=== PATIENT | male | born 1960 | race Caucasian/White ===

== ENCOUNTER → 2017-03-01 | Outpatient (CLI) | payer OTHER ==
[2017-03-01 14:18] LABS: MEAN CORPUSCULAR HEMOGLOBIN 32.5 pg (27.0-33.0); MEAN CORPUSCULAR HGB CONC 32.6 g/dl (32.0-36.5); MEAN CORPUSCULAR VOLUME 99.5 fl (80.0-96.0); RED CELL DISTRIBUTION WIDTH 12.9 % (11.5-14.5)
[2017-03-01 14:21] LABS: ALBUMIN 3.9 GM/DL (3.2-5.2); ALBUMIN/GLOBULIN RATIO 1.39 (1.00-1.93); ALKALINE PHOSPHATASE 45 U/L (45-117); ALT/SGPT 22 U/L (12-78); ANION GAP 3 MEQ/L (8-16); AST/SGOT 11 U/L (15-37); BILIRUBIN,TOTAL 0.4 MG/DL (0.2-1.0); BLOOD UREA NITROGEN 14 MG/DL (7-18); CARBON DIOXIDE LEVEL 29 MEQ/L (21-32); CHLORIDE LEVEL 109 MEQ/L (98-107); CHOLESTEROL LEVEL 145 MG/DL (<200); CREATININE FOR GFR 0.85 MG/DL (0.70-1.30); GLOMERULAR FILTRATION RATE > 60.0 (>56); GLUCOSE, FASTING 90 MG/DL (70-105); POTASSIUM SERUM 4.6 MEQ/L (3.5-5.1); SODIUM LEVEL 141 MEQ/L (136-145); TOTAL PROTEIN 6.7 GM/DL (6.4-8.2); TRIGLYCERIDES LEVEL 47 MG/DL (<150)
== END ==
LOC: M WUC 09:28
PROVIDERS: ATTEND Nurse Practitioner Adult Health
DX: Z00.01 Encounter for general adult medical examination with abnormal findings (principal)

== ENCOUNTER → 2017-03-25 | Outpatient (CLI) | payer OTHER ==
--- NOTE | 2017-03-25 17:06 | REP ---
CT IACS WITHOUT CONTRAST: HISTORY: Right otorrhea. The right internal auditory canal cochlea, vestibule and semicircular canals are normal in appearance. Soft-tissue density is present in the right middle ear cavity. The ossicles are not seen. There is blunting of the scutum. There is dehiscence over the tegmen. There is almost complete opacification of the right mastoid air cells. There is retraction of the right tympanic membrane. The left internal auditory canal, cochlea, vestibule and semicircular canals are normal in appearance. The ossicles are normal in position , however , slightly decreased in size. Soft tissue density is present in the left middle ear cavity. There is complete opacification of the left middle ear cavity. There is retraction of the left tympanic membrane. There is blunting of the scutum. There is dehiscence of the tegmen. There is almost complete opacification of the left mastoid air cells. The visualized sinuses are clear. The nasopharynx is normal in appearance. IMPRESSION: The above findings are consistent with bilateral cholesteatoma. Signed by Afshin Manley MD 03/29/2017 08:34 A
== END ==
LOC: M RAD 15:44
PROVIDERS: ATTEND Otolaryngology
DX: H66.3X1 Other chronic suppurative otitis media, right ear (principal)

== ENCOUNTER 2017-09-16 11:14 | Emergency (ER) | payer OTHER ==
[~2017-09-16] VITALS: Ht 177.8 cm; Wt 70.0 kg
[2017-09-16] MEDS ORDERED: NAPR500T PO (12:26)
[2017-09-16 12:35] VITALS: BP 137/84
== END 2017-09-16 12:39 | disposition home or self-care (01) ==
LOC: M ED 11:14
DX: M54.5 Low back pain (principal); M62.830 Muscle spasm of back; F10.11 Alcohol abuse, in remission; F19.11 Other psychoactive substance abuse, in remission; Z88.8 Allergy status to other drugs, medicaments and biological substances

== ENCOUNTER 2017-12-25 20:53 | Emergency (ER) | payer OTHER ==
[2017-12-25 22:27] LABS: BASO # 0.1 10^3/uL (0.0-0.2); EOS # 0.3 10^3/uL (0.0-0.50); EOS % 3.6 % (0.0-3.0); HEMATOCRIT 38.4 % (42.0-52.0); HEMOGLOBIN 13.2 g/dl (14.0-18.0); IMMATURE GRANULOCYTE % 0.2 % (0-3.0); LYMPH # 2.8 10^3/uL (1.5-4.5); LYMPH % 31.5 % (24.0-44.0); MEAN CORPUSCULAR HGB CONC 34.4 g/dl (32.0-36.5); MEAN CORPUSCULAR VOLUME 93.2 fl (80.0-96.0); MONO # 0.8 10^3/uL (0.0-0.8); MONO % 9.2 % (0.0-5.0); NEUTROPHILS # 4.8 10^3/uL (1.8-7.7); NEUTROPHILS % 54.5 % (36.0-66.0); PLATELET COUNT, AUTOMATED 183 10^3/uL (150-450); RED BLOOD COUNT 4.12 10^6/uL (4.30-6.10); RED CELL DISTRIBUTION WIDTH 12.7 % (11.5-14.5); WHITE BLOOD COUNT 8.8 10^3/uL (4.0-10.0)
[2017-12-25 22:38] LABS: CARBOXYHEMOGLOBIN 6.7 % (0.0-1.5)
[2017-12-25 22:46] LABS: ANION GAP 5 MEQ/L (8-16); BLOOD UREA NITROGEN 13 MG/DL (7-18); CALCIUM LEVEL 8.8 MG/DL (8.5-10.1); CARBON DIOXIDE LEVEL 26 MEQ/L (21-32); CHLORIDE LEVEL 111 MEQ/L (98-107); CREATININE FOR GFR 0.86 MG/DL (0.70-1.30); GLOMERULAR FILTRATION RATE > 60.0 (>56); GLUCOSE, FASTING 87 MG/DL (70-100); POTASSIUM SERUM 4.5 MEQ/L (3.5-5.1); SODIUM LEVEL 142 MEQ/L (136-145)
== END 2017-12-26 00:03 | disposition home or self-care (01) ==
LOC: M ED 12-26 00:03
DX: T58.91XA Toxic effect of carbon monoxide from unspecified source, accidental (unintentional), initial encounter (principal); R59.0 Localized enlarged lymph nodes; J44.9 Chronic obstructive pulmonary disease, unspecified; Z79.899 Other long term (current) drug therapy; Z79.51 Long term (current) use of inhaled steroids; Z88.8 Allergy status to other drugs, medicaments and biological substances; F17.210 Nicotine dependence, cigarettes, uncomplicated
CPT/HCPCS: 71046

== ENCOUNTER 2018-05-16 10:25 | Emergency (ER) | payer OTHER ==
[2018-05-16 11:09] LABS: BASO # 0.1 10^3/uL (0.0-0.2); BASO % 0.9 % (0.0-1.0); EOS # 0.3 10^3/uL (0.0-0.50); EOS % 3.9 % (0.0-3.0); HEMOGLOBIN 13.9 g/dl (13.5-17.5); IMMATURE GRANULOCYTE % 0.1 % (0-3.0); LYMPH # 2.8 10^3/uL (1.5-4.5); LYMPH % 31.4 % (24.0-44.0); MEAN CORPUSCULAR HEMOGLOBIN 31.7 pg (27.0-33.0); MEAN CORPUSCULAR HGB CONC 33.9 g/dl (32.0-36.5); MEAN CORPUSCULAR VOLUME 93.4 fl (80.0-96.0); MONO # 0.6 10^3/uL (0.0-0.8); MONO % 6.7 % (0.0-5.0); PLATELET COUNT, AUTOMATED 185 10^3/uL (150-450); RED BLOOD COUNT 4.39 10^6/uL (4.30-6.10); RED CELL DISTRIBUTION WIDTH 12.5 % (11.5-14.5); WHITE BLOOD COUNT 8.8 10^3/uL (4.0-10.0)
[2018-05-16 11:45] LABS: ALBUMIN 3.8 GM/DL (3.2-5.2); ALBUMIN/GLOBULIN RATIO 1.09 (1.00-1.93); ALKALINE PHOSPHATASE 53 U/L (45-117); ALT/SGPT 30 U/L (12-78); ANION GAP 5 MEQ/L (8-16); AST/SGOT 17 U/L (7-37); BILIRUBIN,DIRECT < 0.1 MG/DL (0.0-0.2); BILIRUBIN,TOTAL 0.2 MG/DL (0.2-1.0); BLOOD UREA NITROGEN 9 MG/DL (7-18); CALCIUM LEVEL 8.7 MG/DL (8.5-10.1); CARBON DIOXIDE LEVEL 29 MEQ/L (21-32); CHLORIDE LEVEL 109 MEQ/L (98-107); GLOMERULAR FILTRATION RATE > 60.0 (>56); GLUCOSE, FASTING 96 MG/DL (70-100); POTASSIUM SERUM 4.1 MEQ/L (3.5-5.1); SODIUM LEVEL 143 MEQ/L (136-145); TOTAL PROTEIN 7.3 GM/DL (6.4-8.2)
[2018-05-16] MEDS: PROPARACAINE 0.5% OPHTH SOL 15ML OD (12:45)
== END 2018-05-16 13:15 | disposition home or self-care (01) ==
LOC: M ED 10:25
DX: H53.451 Other localized visual field defect, right eye (principal); J44.9 Chronic obstructive pulmonary disease, unspecified; F17.200 Nicotine dependence, unspecified, uncomplicated; Z88.6 Allergy status to analgesic agent
CPT/HCPCS: 70450

== ENCOUNTER 2018-10-02 20:15 | Emergency (ER) | payer OTHER ==
[2018-10-02 21:08] LABS: BASO # 0.1 10^3/uL (0.0-0.2); BASO % 1.2 % (0.0-1.0); EOS # 0.3 10^3/uL (0.0-0.50); EOS % 3.7 % (0.0-3.0); HEMATOCRIT 38.6 % (42.0-52.0); IMMATURE GRANULOCYTE % 0.3 % (0-3.0); LYMPH # 2.4 10^3/uL (1.5-4.5); LYMPH % 35.8 % (24.0-44.0); MEAN CORPUSCULAR HEMOGLOBIN 31.3 pg (27.0-33.0); MEAN CORPUSCULAR HGB CONC 33.7 g/dl (32.0-36.5); MEAN CORPUSCULAR VOLUME 92.8 fl (80.0-96.0); MONO # 0.6 10^3/uL (0.0-0.8); MONO % 8.8 % (0.0-5.0); NEUTROPHILS # 3.4 10^3/uL (1.8-7.7); NEUTROPHILS % 50.2 % (36.0-66.0); PLATELET COUNT, AUTOMATED 188 10^3/uL (150-450); RED BLOOD COUNT 4.16 10^6/uL (4.30-6.10); RED CELL DISTRIBUTION WIDTH 12.5 % (11.5-14.5); WHITE BLOOD COUNT 6.8 10^3/uL (4.0-10.0)
[2018-10-02] MEDS: hydrALAZINE INJ 20 MG/ML VIAL IV (21:16)
[2018-10-02 21:19] LABS: PARTIAL THROMBOPLASTIN TIME 27.9 SECONDS (25.4-37.6); PROTHROMBIN TIME 13.3 SECONDS (12.1-14.4)
[2018-10-02 21:40] LABS: ALBUMIN 3.5 GM/DL (3.2-5.2); ALBUMIN/GLOBULIN RATIO 1.25 (1.00-1.93); ALKALINE PHOSPHATASE 45 U/L (45-117); ALT/SGPT 25 U/L (12-78); ANION GAP 6 MEQ/L (8-16); AST/SGOT 16 U/L (7-37); BILIRUBIN,DIRECT < 0.1 MG/DL (0.0-0.2); BILIRUBIN,TOTAL 0.2 MG/DL (0.2-1.0); BLOOD UREA NITROGEN 11 MG/DL (7-18); CALCIUM LEVEL 8.7 MG/DL (8.5-10.1); CARBON DIOXIDE LEVEL 29 MEQ/L (21-32); CHLORIDE LEVEL 110 MEQ/L (98-107); CK-MB VALUE MASS < 1.0 NG/ML (<3.6); CPK CREATINE PHOSPHOKINASE 105 U/L (39-308); CREATININE FOR GFR 0.87 MG/DL (0.70-1.30); FREE T4 0.97 NG/DL (0.76-1.46); GLOMERULAR FILTRATION RATE > 60.0 (>56); GLUCOSE, FASTING 99 MG/DL (70-100); MB/CK RELATIVE INDEX 0.95 (< OR =4); POTASSIUM SERUM 4.1 MEQ/L (3.5-5.1); SODIUM LEVEL 145 MEQ/L (136-145); TOTAL PROTEIN 6.3 GM/DL (6.4-8.2); TROPONIN I < 0.02 NG/ML (< 0.10)
== END 2018-10-02 22:30 | disposition home or self-care (01) ==
LOC: M ED 20:15
DX: I16.0 Hypertensive urgency (principal); I10 Essential (primary) hypertension; J44.9 Chronic obstructive pulmonary disease, unspecified; Z88.8 Allergy status to other drugs, medicaments and biological substances; F17.210 Nicotine dependence, cigarettes, uncomplicated
CPT/HCPCS: 70450

== ENCOUNTER 2018-10-04 16:51 | Emergency (ER) | payer OTHER ==
[2018-10-04 17:27] LABS: BASO # 0.1 10^3/uL (0.0-0.2); EOS # 0.3 10^3/uL (0.0-0.50); EOS % 3.9 % (0.0-3.0); HEMATOCRIT 38.6 % (42.0-52.0); HEMOGLOBIN 13.2 g/dl (13.5-17.5); IMMATURE GRANULOCYTE % 0.1 % (0-3.0); LYMPH # 2.7 10^3/uL (1.5-4.5); LYMPH % 34.6 % (24.0-44.0); MEAN CORPUSCULAR HEMOGLOBIN 31.7 pg (27.0-33.0); MEAN CORPUSCULAR HGB CONC 34.2 g/dl (32.0-36.5); MEAN CORPUSCULAR VOLUME 92.8 fl (80.0-96.0); MONO # 0.6 10^3/uL (0.0-0.8); MONO % 7.5 % (0.0-5.0); NEUTROPHILS # 4.1 10^3/uL (1.8-7.7); NEUTROPHILS % 52.9 % (36.0-66.0); PLATELET COUNT, AUTOMATED 193 10^3/uL (150-450); RED BLOOD COUNT 4.16 10^6/uL (4.30-6.10); RED CELL DISTRIBUTION WIDTH 12.6 % (11.5-14.5); WHITE BLOOD COUNT 7.7 10^3/uL (4.0-10.0)
[2018-10-04 17:49] LABS: INR 1.02; PROTHROMBIN TIME 13.5 SECONDS (12.1-14.4)
[2018-10-04 17:50] LABS: PARTIAL THROMBOPLASTIN TIME 27.2 SECONDS (25.4-37.6)
[2018-10-04 17:51] LABS: ALT/SGPT 27 U/L (12-78); ANION GAP 8 MEQ/L (8-16); AST/SGOT 16 U/L (7-37); BLOOD UREA NITROGEN 13 MG/DL (7-18); CALCIUM LEVEL 8.6 MG/DL (8.5-10.1); CARBON DIOXIDE LEVEL 24 MEQ/L (21-32); CHLORIDE LEVEL 110 MEQ/L (98-107); CREATININE FOR GFR 0.86 MG/DL (0.70-1.30); GLOMERULAR FILTRATION RATE > 60.0 (>56); GLUCOSE, FASTING 95 MG/DL (70-100); PHOSPHORUS LEVEL 2.8 MG/DL (2.5-4.9); POTASSIUM SERUM 3.8 MEQ/L (3.5-5.1); SODIUM LEVEL 142 MEQ/L (136-145)
[2018-10-04 17:52] LABS: ALBUMIN 3.7 GM/DL (3.2-5.2); ALBUMIN/GLOBULIN RATIO 1.28 (1.00-1.93); ALKALINE PHOSPHATASE 46 U/L (45-117); BILIRUBIN,DIRECT < 0.1 MG/DL (0.0-0.2); BILIRUBIN,TOTAL 0.2 MG/DL (0.2-1.0); CK-MB VALUE MASS < 1.0 NG/ML (<3.6); CPK CREATINE PHOSPHOKINASE 106 U/L (39-308); FREE T4 0.99 NG/DL (0.76-1.46); LIPASE 161 U/L (73-393); MAGNESIUM LEVEL 2.1 MG/DL (1.8-2.4); MB/CK RELATIVE INDEX 0.94 (< OR =4); TOTAL PROTEIN 6.6 GM/DL (6.4-8.2); TROPONIN I < 0.02 NG/ML (< 0.10)
[2018-10-04] MEDS ORDERED: ISOVUE-370 76% 100ML VIAL (Q9967) As Ordered (18:25)
[2018-10-04 22:21] LABS: CK-MB VALUE MASS < 1.0 NG/ML (<3.6); CPK CREATINE PHOSPHOKINASE 109 U/L (39-308); MB/CK RELATIVE INDEX 0.92 (< OR =4); TROPONIN I < 0.02 NG/ML (< 0.10)
== END 2018-10-04 22:36 | disposition home or self-care (01) ==
LOC: M ED 16:51
DX: R07.89 Other chest pain (principal); R11.0 Nausea; R06.02 Shortness of breath; I10 Essential (primary) hypertension; J43.9 Emphysema, unspecified; F19.10 Other psychoactive substance abuse, uncomplicated; F17.200 Nicotine dependence, unspecified, uncomplicated; Z88.6 Allergy status to analgesic agent; Z79.899 Other long term (current) drug therapy
CPT/HCPCS: Q9967

== ENCOUNTER 2019-01-17 09:01 | Emergency (ER) | payer OTHER ==
[~2019-01-17] VITALS: Ht 177.8 cm; Wt 73.6 kg
[~2019-01-17 09:01] MED LIST: AMLO10TA PO; ARNU1INH3; BREO1INH3; FLUARIX; NAPR-50 PO
[2019-01-17] MEDS ORDERED: LIDOCAINE 5% (LIDODERM) PATCH TD ONE (10:30)
[2019-01-17] MEDS ORDERED: LIDO5DIS41 TD (10:30)
[2019-01-17 10:40] VITALS: BP 143/68
[2019-01-17] MEDS ORDERED: **NOTE PATIENT COMMENT** MISC XX SCH (21:00)
== END 2019-01-17 10:41 | disposition home or self-care (01) ==
LOC: M ED 09:01
DX: M25.511 Pain in right shoulder (principal); I10 Essential (primary) hypertension; J44.9 Chronic obstructive pulmonary disease, unspecified; E78.5 Hyperlipidemia, unspecified; F10.11 Alcohol abuse, in remission; F19.11 Other psychoactive substance abuse, in remission; F17.210 Nicotine dependence, cigarettes, uncomplicated; Z88.8 Allergy status to other drugs, medicaments and biological substances

== ENCOUNTER → 2019-01-22 | Outpatient (REF) | payer OTHER ==
[~2019-01-22] MED LIST changes: +LIDO5DIS41 TD
[2019-01-22 11:54] LABS: HEMATOCRIT 39.9 % (42.0-52.0); HEMOGLOBIN 13.4 g/dl (13.5-17.5); MEAN CORPUSCULAR HEMOGLOBIN 30.9 pg (27.0-33.0); MEAN CORPUSCULAR HGB CONC 33.6 g/dl (32.0-36.5); MEAN CORPUSCULAR VOLUME 91.9 fl (80.0-96.0); PLATELET COUNT, AUTOMATED 204 10^3/uL (150-450); RED BLOOD COUNT 4.34 10^6/uL (4.30-6.10); WHITE BLOOD COUNT 7.6 10^3/uL (4.0-10.0)
[2019-01-22 12:11] LABS: BLOOD UREA NITROGEN 11 MG/DL (7-18); CREATININE FOR GFR 0.72 MG/DL (0.70-1.30); GLOMERULAR FILTRATION RATE > 60.0 (>56); GLUCOSE, FASTING 86 MG/DL (70-100)
[2019-01-22 12:12] LABS: ALT/SGPT 31 U/L (12-78); BILIRUBIN,TOTAL 0.2 MG/DL (0.2-1.0); CALCIUM LEVEL 8.7 MG/DL (8.5-10.1); CARBON DIOXIDE LEVEL 28 MEQ/L (21-32); CHLORIDE LEVEL 110 MEQ/L (98-107); POTASSIUM SERUM 4.5 MEQ/L (3.5-5.1); SODIUM LEVEL 142 MEQ/L (136-145); THYROID STIMULATING HORMONE 0.894 uIU/ML (0.358-3.740); TOTAL PROTEIN 6.8 GM/DL (6.4-8.2)
== END ==
LOC: M SFHCPLAZ 08:49
PROVIDERS: ATTEND Nurse Practitioner Adult Health
DX: Z00.00 Encounter for general adult medical examination without abnormal findings (principal)

== ENCOUNTER → 2020-11-26 | Outpatient (CLI) | payer OTHER ==
[~2020-11-26] MED LIST changes: -NAPR-50 PO; +NAPR-837 PO
[2020-11-26 15:20] LABS: HEMATOCRIT 40.9 % (42.0-52.0); HEMOGLOBIN 13.6 g/dl (13.5-17.5); MEAN CORPUSCULAR HEMOGLOBIN 31.1 pg (27.0-33.0); MEAN CORPUSCULAR HGB CONC 33.3 g/dl (32.0-36.5); MEAN CORPUSCULAR VOLUME 93.4 fl (80.0-96.0); PLATELET COUNT, AUTOMATED 207 10^3/uL (150-450); RED BLOOD COUNT 4.38 10^6/uL (4.30-6.10); WHITE BLOOD COUNT 9.4 10^3/uL (4.0-10.0)
[2020-11-26 15:59] LABS: ALBUMIN 4.2 GM/DL (3.2-5.2); ALT/SGPT 26 U/L (12-78); BILIRUBIN,TOTAL 0.2 MG/DL (0.2-1.0); BLOOD UREA NITROGEN 13 MG/DL (7-18); CALCIUM LEVEL 9.5 MG/DL (8.8-10.2); CARBON DIOXIDE LEVEL 29 MEQ/L (21-32); CHLORIDE LEVEL 107 MEQ/L (98-107); CREATININE FOR GFR 0.89 MG/DL (0.70-1.30); GLOMERULAR FILTRATION RATE > 60.0 (>49); GLUCOSE, FASTING 86 MG/DL (70-100); POTASSIUM SERUM 4.2 MEQ/L (3.5-5.1); SODIUM LEVEL 141 MEQ/L (136-145); TOTAL PROTEIN 7.1 GM/DL (6.4-8.2)
--- NOTE | 2020-11-27 04:29 | REPPI ---
INDICATION: SOB COMPARISON: 10/04/2018 TECHNIQUE: PA and lateral. FINDINGS: The mediastinum and cardiac silhouette are normal. The lung ve[place] are clear and without acute consolidation, effusion, or pneumothorax. The skeletal structures are intact and normal. IMPRESSION: No acute cardiopulmonary process. <Electronically signed by Shoaib Lee > 11/27/20 0425
== END ==
LOC: M PLAIMG 13:25
PROVIDERS: ATTEND Nurse Practitioner Adult Health
DX: R06.02 Shortness of breath (principal); I10 Essential (primary) hypertension; Z12.5 Encounter for screening for malignant neoplasm of prostate; I45.9 Conduction disorder, unspecified

== ENCOUNTER 2020-12-13 14:07 | Emergency (ER) | payer OTHER ==
[~2020-12-13] VITALS: Ht 177.8 cm; Wt 68.7 kg
[2020-12-13 14:08] VITALS: BP 157/71
--- OUTSIDE RECORDS SUMMARY | 2020-12-13 14:14 | CCD ---
Author Author [facility] Organization [facility] Address Unknown Phone Unavailable Care Team Providers Care Acute Care Occupational Therapist Name Role Phone VirginiaageStevenCat Unavailable PROBLEMS Type Condition ICD9-CM Code [id number] Code Onset Dates Condition S tatus W/U Status Risk SNOMED Code Notes Problem Tobacco abuse Z72.0 Active confirmed 954586 [id number] Problem Emphysema (subcutaneous) resulting from a procedure, initial encounter T81.82XA Active confirmed 35259175 Problem Essential tremor G25.0 Active confirmed 609 224405 Problem Benign prostatic hyperplasia with lower urinary tract symptoms N40.1 Active confirmed 886697030134369 Problem Bilateral hearing loss, unspecified hearing loss type H91.93 Active confirmed 96187756 Problem Skipped heart beats I45.9 Active confirmed 349357272 Problem Pulmonary emphysema, unspecified emphysema type J4 3.9 Active confirmed 32344455 Problem Carboxyhemoglobinemia, undetermined intent, 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 Active confirmed 559542208 Problem Essential hypertension I10 Active confirmed 60705143 Problem Carpal tunnel syndrome of right wrist G56.01 Ac tive confirmed 151126861985351 Problem Cigarette smoker F17.210 Active confirmed 65 370567 ALLERGIES Allergen (clinical drug ingredient) Drug/Non Drug Allergy do cumented on EMR Reaction Allergy Type Onset Date Status tylenol back pain started wh en he stopped tylenol with codiene and took plain tylenol Non Drug Allergy Active ENCOUNTERS from 1960 to 2020-12-01 Encounter Location Date Provider Diagnosis [facility] [place] [address] [place] [address] Oct, Cat Servage Shortness of breath R06.02 ; Skipped hea rt beats I45.9 ; Essential hypertension I10 ; Pulmonary emphysema, unspecified emphysema type J43.9 ; Essential tremor G25.0 ; Bilateral hearing loss, unspecified hearing loss type H91.93 ; Cigarette smoker F17.210 ; Benign prostatic hyperplasia with lower urinary tract symptoms N40.1 ; Screening PSA (prostate specific antigen) Z12.5 and Immunization refused Z28.21 IMMUNIZATIONS Vaccine Route Administration Date Status Pneumococcal Adult 0.5mL (Pneumovax 23) IM Intramuscular January 292016 Administered Influenza (6mo & up) Fluzone Unknown Jul 07, 2017 Adm inistered SOCIAL HISTORY Tobacco Use: Social History Observation Description Date Details (start date - stop date) Current Smoker Sex Assigned At : Social History Observation Description Sex Assigned At Unknown Education: Question Answer Notes Level of Education: High School finished 10th Audit Question Answer Notes Total Score: 0 Interpretation: Alcohol Education Language: Question Answer Notes Languages spoken: Nepalese Samaritan: Question Answer Notes Samaritan 33 None Sexual Hx: Question Answer Notes Had sex in the last 12 months (vaginal, oral, or anal)? Yes Have you ever had an STD? No Prevention Strategies discussed: Other with Women only Use protection? No Drug and Alcohol Question Answer Notes Total Score: 0 Interpretation: No problems reported Alcohol Screening: Question Answer Notes Did you have a drink containing alcohol in the past year? No Points 0 Interpretation Negative Tobacco Use: Question Answer Notes Are you a: current smoker Smoking Cessation Information Given 11/26/2020 Patient counseled on the dangers of tobacco use and urged to quit: 11/26/2020 How many cigarettes a day do you smoke? 5 or less Are you interested in quitting? Not ready to quit REASON FOR REFERRAL No Information VITAL SIGNS Weight 150.0 lbs Oct, Height 60 in Oct, BMI 29.29 kg/m2 Oct, Heart Rate 90 /min Oct, Respiratory Rate 18 /min Oct, Temperature 99.1 degrees Fahrenheit Oct, Oximetry 100% Oct, Blood pressure systolic 136 mm Hg Oct, Blood pressure diastolic 70 mm Hg Oct, MEDICATIONS Medication SIG (Take, Route, Frequency, Duration) Notes Start Da te End Date Status Flomax 0.4 MG 1 capsule Orally Once a day for 30 day(s) Jul, Not-Taking Albuterol Sulfate HFA 108 (90 Base) MCG/ACT 2 puff as needed Inhalation every 4 hrs for 30 days Oct, Active PredniSONE 10 MG 1 tablet Orally as directed 3 tabs x 3 days 2 tabs x 3 days 1 tab x 3 days for 9 days Jul, Not-Taki ng Advair Diskus 250-50 MCG/DOSE 1 puff Inhalation Twice a day for 30 days Oct, Active AmLODIPine Besylate 10 MG 1 tablet Orally Once a day for 90 days Active PROCEDURES from 1960 to 2020-12-01 Procedure Date Ordered Result Body Site ELECTROCARDIOGRAM, COMPLETE EKG 2020-11-26 N/A RESULTS Component Value Reference Range CBC - Complete Blood Count Reviewed date:11/26/2020 16:20:51 Interpretation: Performing Lab:[facility] [address] [facility] [address] , ,[place] [address] WHITE BLOOD COUNT 9.4 4.0-10.0 RED BLOOD COUNT 4.38 4.30-6.10 HEMOGLOBIN 13.6 13.5-17.5 HEMATOCRIT 40.9 42.0-52.0 MEAN CORPUSCULAR VOLUME 93.4 80.0-96.0 MEAN CORPUSCULAR HEMOGLOBIN 31.1 27.0-33.0 MEAN CORPUSCULAR HGB CONC 33.3 32.0-36.5 RED CELL DISTRIBUTION WIDTH 12.2 11.5-14.5 PLATELET COUNT, AUTOMATED 207 150-450 Comprehensive Metabolic Profile (CMP) Reviewed date:11/26/2020 16:18:17 Interpretation: Performing Lab:[facility] [address] [facility] [address] , ,[place] [address] GLUCOSE, FASTING 86 70-100 BLOOD UREA NITROGEN 13 7-18 CREATININE FOR GFR 0.89 0.70-1.30 GLOMERULAR FILTRATION RATE > 60.0 >49 SODIUM LEVEL 141 136-145 POTASSIUM SERUM 4.2 3.5-5.1 CHLORIDE LEVEL 107 98-107 CARBON DIOXIDE LEVEL 29 21-32 CALCIUM LEVEL 9.5 8.8-10.2 AST/SGOT 9 7-37 ALT/SGPT 26 12-78 ALKALINE PHOSPHATASE 47 45-117 BILIRUBIN,TOTAL 0.2 0.2-1.0 TOTAL PROTEIN 7.1 6.4-8.2 ALBUMIN 4.2 3.2-5.2 ALBUMIN/GLOBULIN RATIO 1.4 PSA SCREENING Reviewed date:11/26/2020 16:20:34 Interpretation: Performing Lab:[facility], [facility] [address] [address] , ,[place] [address] PSA SCREENING 2.08 < 4.00 REASON FOR VISIT breathing issues MEDICAL (GENERAL) HISTORY Type Description Date Medical History Emphysema Medical History hypertension Medical History Tobacco abuse 1 pack per day x 45 years Medical History Substance abuse in the past Medical History 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 or-quit 10/17 Medical History decreased hearing bilateral Surgical History dental surgery - removed 02/13 Surgical History bilateral cataracts 07/2019-07/2019 Hospitalization History none Goals Section No Information Health Concerns No Information MEDICAL EQUIPMENT No Information MENTAL STATUS No Information FUNCTIONAL STATUS No Information ASSESSMENTS Encounter Date Diagnosis Assessment Notes Treatment Notes Treatm ent Clinical Notes Oct, Shortness of breath (ICD-10 - R06.02) stopped breo due to cost will obtain chest x ray Oct, Skipped heart beats (ICD-10 - I45.9) ekg obtained today right bundle branch block left fascicular block Oct, Essential hypertension (ICD-10 - I10) Per JNC 8 guidelines, goal BP < 140/90 <60, is meeting goal on current regimen. Advised heart-healthy diet, sodium restriction will continue norvasc 10 mg po q day Oct, Pulmonary emphysema, unspecified emphysema type (ICD-10 - J43.9) identified on CT last fall in the ER. refuses referral to Pulmonary Service, at that time. refused inhalers refuses follow-up CT scans or screening CT scans 08/20/20 agrees to inhaler today to address shortness of breath and wheeezing Oct, Essential tremor (ICD-10 - G25.0) patient states that he has had a tremor on and off for years. Was told that he might have Parkinson's, he was on primidone. Did not like it. refuses referral to neurology services at the current time. no tremor noted today Oct, Bilateral hearing loss, unsp ecified hearing loss type (ICD-10 - H91.93) x several years, states hearing aides work well Oct, Cigarette smoker (ICD-10 - F17.210) Has cut down his smoking, 4 cigarettes per day around meals and bedtime. Oct, Benign prostatic hyperplasia with lower urinary tract symptoms (ICD-10 - N40.1) flomax ordered stopped it thought it gave him palpations Oct, Screening PSA (prostate specific antigen) (ICD-1 0 - Z12.5) Oct, Immunization refused (ICD-10 - Z28.21) already had flu vaccine Oct, Other follow up sched uled PLAN OF TREATMENT Medication Medication Name Sig Start Date Stop Date Albuterol Sulfate HFA 108 (90 Base) MCG/ACT 2 puff as needed Inhalation every 4 hrs for 30 days Oct, Advair Diskus 250-50 MCG/DOSE 1 puff Inhalation Twice a day for 30 days Oct, Treatment Notes Assessment Notes Clinical Notes Shortness of breath stopped breo due to cost will obtain chest x ray Skipped heart beats ekg obtained today r ight bundle branch block left fascicular block Essential hypertension Per JNC 8 guideli robert, goal BP < 140/90 <60, is meeting goal on current regimen. Advised heart-healthy diet, sodium restriction will continue norvasc 10 mg po q day Pulmonary emphysema, unspecified emphysema type identified on CT last fall in the ER. refuses referral to Pulmonary Service, at that time. refused inhalers refuses follow-up CT scans or screening CT scans08/20/20 agrees to inhaler today to address shortness of breath and wheeezing Essential tremor patient states that he has had a tremor on and off for years. Was told that he might have Parkinson's, he was on primidone. Did not like it. refuses referral to neurology services at the current time. no tremor noted today Bilateral hearing loss, unspecified hearing loss type x several years, states hearing aides work well Cigarette smoker Has cut down his smo cassia, 4 cigarettes per day around meals and bedtime. Benign prostatic hyperplasia with lower urinary tract sympto ms flomax ordered stopped it thought it gave him palpations Immunization refused already had flu vac cine Treatment Notes Test Name Order Date X ray : Chest (PA lateral) 2020-11-26 Next Appt Details 3 week follow up 30 minutes Reason: Provider Name:Cat Sanchez, 08:00:00 AM, [address] [place], [address], Insurance Providers Payer Name Payer Address Payer Phone Insured Name Patient Relati onship to Insured Coverage Start Date Coverage End Date [facility] [facility] [address] [facility] [id number] [employer] self
--- OUTSIDE RECORDS SUMMARY | 2020-12-13 14:15 | CCD ---
Author Author [facility] Organization [facility] Address Unknown Phone Unavailable Support Name Relationship Address Phone ROSIE OLLIE Next Of Kin [facility] [place] [address] ANA BERMAN Next Of Kin [address] [place] [address] DISABLED Next Of Kin Unknown Unavailable [place] [address] UE Next Of Kin Unknown Unavailable [id number] [address] [employer] [place] [address] [place] [address] Ollie Berman ECON [address] [place] [address] Unavailable Brenda Berman ECON [address] [place] [address] [phone] Re-disclosure Warning The records that you are about to access may contain information from federally-assisted alcohol or drug abuse programs. If such information is present, then the following federally mandated warning applies: This information has been disclosed to you from records protected by federal confidentiality rules (42 CFR part 2). The federal rules prohibit you from making any further disclosure of this information unless further disclosure is expressly permitted by the written consent of the person to whom it pertains or as otherwise permitted by 42 CFR part 2. A general authorization for the release of medical or other information is NOT sufficient for this purpose. The Federal rules restrict any use of the information to criminally investigate or prosecute any alcohol or drug abuse patient.The records that you are about to access may contain highly sensitive health information, the redisclosure of which is protected by Article 27-F of the [place] Public Health law. If you continue you may have access to information: Regarding HIV / AIDS; Provided by facilities licensed or operated by the [facility] Office of Mental Health; or Provided by the [facility] Office for People With Developmental Disabilities. If such information is present, then the following [facility] mandated warning applies: This information has been disclosed to you from confidential records which are protected by state law. State law prohibits you from making any further disclosure of this information without the specific written consent of the person to whom it pertains, or as otherwise permitted by law. Any unauthorized further disclosure in violation of state law may result in a fine or intermediate sentence or both. A general authorization for the release of medical or other information is NOT sufficient authorization for further disc losure. Family History Family Member Name Family Member Gender Family Member Status Date o f Status Description Data Source(s) Unknown Male Problem MEDENT ([facility]) Unknown Unknown Problem MEDENT ([facility] ) Encounters Encounter Providers Location Date Indications Data Source(s ) Outpatient [address] [facility] [place] [address] 11/26/2020 12:00:00 AM EST eCW1 ([facility]) Unknown [address] [facility] [place] [address] 11/26/2020 12:00:00 AM EST eCW1 [facility]) Unknown [address] [facility] [address] 11/20/2020 12:00:00 AM EST [facility]) Unknown [address] [facility] [place] [address] 10/09/2020 12:00:00 AM EST eCW1 ([facility]) Unknown [address] [facility] [place] [address] 09/04/2020 12:00:00 AM EST eCW1 ([facility]) Outpatient [address] [facility] [place] [address] 08/20/2020 12:00:00 AM EDT eCW1 ([facility]) Unknown [address] [facility] [place] [address] 08/15/2020 12:00:00 AM EDT eCW1 [facility] [address] [facility] [place] [address] 03/07/2020 12:00:00 AM EDT eCW1 ([facility] [address] [facility] [place] [address] 01/09/2020 12:00:00 AM EDT eCW1 ([facility]) [facility] [address] [facility] [place] [address] 01/09/2020 12:00:00 AM EDT eCW1 ([facility]) Immunizations Vaccine Date Status Description Data Source(s) INFLUENZA VIRUS VACCINE QUADRIVALENT 2019- (6 MOS AN D UP) 07/17/2020 12:00:00 AM EDT completed [facility] Medications Medication Brand Name Start Date Product Form Dose Route Admi nistrative Instructions Pharmacy Instructions Status Indications Reaction Description Data Source(s) 90 mcg/actuation 11/27/2020 12:00:00 AM EST HFA aerosol inha ler 8 INHALE 2 PUFFS BY MOUTH EVERY 4 HOURS NEEDED INHALE 2 PUFFS BY MOUTH EVERY 4 HOURS NEEDED SOLD: 12/04/2020 [facility] 250-50 mcg/dose 11/27/2020 12:00:00 AM EST blister with edi ce 60 INHALE 1 PUFF BY MOUTH TWO TIMES A DAY INHALE 1 PUFF BY MOUTH TWO TIMES A DAY SOLD: 12/04/2020 [facility] 60 ACTUAT Fluticasone propionate 0.25 MG /ACTUAT / salmeterol 0.05 MG/ACTUAT Dry Powder Inhaler [Advair] Advair Diskus 250-50 MCG/DOSE Advair Diskus 250-50 MCG/DOSE 11/26/2020 12:00:00 AM EST 1.0 {puff} activ e Advair Diskus 250-50 MCG/DOSE eCW1 ([facility]) Albuterol Sulfate HFA 108 (90 Base) MCG/ACT Albuterol Sulfate HFA 108 (90 Base) MCG/ACT 11/26/2020 12:00:00 AM EST 2.0 {puff_as_needed} active Albuterol Sulfate HFA 108 (90 Base) MCG/ACT eCW1 ([facility]) Albuterol Sulfate HFA 108 (90 Base) MCG/ACT Albuterol Sulfate HFA 108 (90 Base) MCG/ACT 11/26/2020 12:00:00 AM EST 2.0 {puff_as_needed} active Albuterol Sulfate HFA 108 (90 Base) MCG/ACT eCW1 ([facility]) 60 ACTUAT Fluticasone propionate 0.25 MG /ACTUAT / salmeterol 0.05 MG/ACTUAT Dry Powder Inhaler [Advair] Advair Diskus 250-50 MCG/DOSE Advair Diskus 250-50 MCG/DOSE 11/26/2020 12:00:00 AM EST 1.0 {puff} activ e Advair Diskus 250-50 MCG/DOSE eCW1 ([facility]) Prednisone 10 MG Oral Tablet PredniSONE 10 MG PredniSONE 10 MG 08/20/2020 12:00:00 AM EDT 1.0 {tablet} active Pr edniSONE 10 MG eCW1 ([facility]) Prednisone 10 MG Oral Tablet PredniSONE 10 MG PredniSONE 10 MG 08/20/2020 12:00:00 AM EDT 1.0 {tablet} suspended PredniSONE 10 MG eCW1 ([facility]) Prednisone 10 MG Oral Tablet PredniSONE 10 MG PredniSONE 10 MG 08/20/2020 12:00:00 AM EDT 1.0 {tablet} active Pr edniSONE 10 MG eCW1 ([facility]) Prednisone 10 MG Oral Tablet PredniSONE 10 MG PredniSONE 10 MG 08/20/2020 12:00:00 AM EDT 1.0 {tablet} active Pr edniSONE 10 MG eCW1 ([facility]) 30 ACTUAT fluticasone furoate 0.2 MG/ACT UAT / vilanterol 0.025 MG/ACTUAT Dry Powder Inhaler [Breo] Breo Ellipta 200-25 MCG/INH Breo Ellipta 200-25 MCG/INH 08/20/2020 12:00:00 AM EDT 1.0 {puff} active Breo Ellipta 200-25 MCG/INH eCW1 ([facility]) 30 ACTUAT fluticasone furoate 0.2 MG/ACT UAT / vilanterol 0.025 MG/ACTUAT Dry Powder Inhaler [Breo] Breo Ellipta 200-25 MCG/INH Breo Ellipta 200-25 MCG/INH 08/20/2020 12:00:00 AM EDT 1.0 {puff} active Breo Ellipta 200-25 MCG/INH eCW1 ([facility]) Tamsulosin hydrochloride 0.4 MG Oral Capsule [Flomax] Flomax 0.4 MG Flomax 0.4 MG 08/20/2020 12:00:00 AM EDT 1.0 {capsule} active Flomax 0.4 MG eCW1 ([facility]) Tamsulosin hydrochloride 0.4 MG Oral Capsule [Flomax] Flomax 0.4 MG Flomax 0.4 MG 08/20/2020 12:00:00 AM EDT 1.0 {capsule} active Flomax 0.4 MG eCW1 ([facility]) Tamsulosin hydrochloride 0.4 MG Oral Capsule [Flomax] Flomax 0.4 MG Flomax 0.4 MG 08/20/2020 12:00:00 AM EDT 1.0 {capsule} active Flomax 0.4 MG eCW1 ([facility]) Tamsulosin hydrochloride 0.4 MG Oral Capsule [Flomax] Flomax 0.4 MG Flomax 0.4 MG 08/20/2020 12:00:00 AM EDT 1.0 {capsule} suspended Flomax 0.4 MG eCW1 ([facility]) 30 ACTUAT fluticasone furoate 0.2 MG/ACT UAT / vilanterol 0.025 MG/ACTUAT Dry Powder Inhaler [Breo] Breo Ellipta 200-25 MCG/INH Breo Ellipta 200-25 MCG/INH 08/20/2020 12:00:00 AM EDT 1.0 {puff} active Breo Ellipta 200-25 MCG/INH eCW1 ([facility]) Prednisone 10 MG Oral Tablet PredniSONE 10 MG PredniSONE 10 MG 08/20/2020 12:00:00 AM EDT 1.0 {tablet} active Pr edniSONE 10 MG eCW1 ([facility]) Tamsulosin hydrochloride 0.4 MG Oral Capsule [Flomax] Flomax 0.4 MG Flomax 0.4 MG 08/20/2020 12:00:00 AM EDT 1.0 {capsule} suspended Flomax 0.4 MG eCW1 ([facility]) Prednisone 10 MG Oral Tablet PredniSONE 10 MG PredniSONE 10 MG 08/20/2020 12:00:00 AM EDT 1.0 {tablet} active Pr edniSONE 10 MG eCW1 ([facility]) 30 ACTUAT fluticasone furoate 0.2 MG/ACT UAT / vilanterol 0.025 MG/ACTUAT Dry Powder Inhaler [Breo] Breo Ellipta 200-25 MCG/INH Breo Ellipta 200-25 MCG/INH 08/20/2020 12:00:00 AM EDT 1.0 {puff} active Breo Ellipta 200-25 MCG/INH eCW1 ([facility]) 30 ACTUAT fluticasone furoate 0.2 MG/ACT UAT / vilanterol 0.025 MG/ACTUAT Dry Powder Inhaler [Breo] Breo Ellipta 200-25 MCG/INH Breo Ellipta 200-25 MCG/INH 08/20/2020 12:00:00 AM EDT 1.0 {puff} active Breo Ellipta 200-25 MCG/INH eCW1 ([facility]) Tamsulosin hydrochloride 0.4 MG Oral Capsule [Flomax] Flomax 0.4 MG Flomax 0.4 MG 08/20/2020 12:00:00 AM EDT 1.0 {capsule} active Flomax 0.4 MG eCW1 ([facility]) Tamsulosin hydrochloride 0.4 MG Oral Capsule [Flomax] Flomax 0.4 MG Flomax 0.4 MG 08/20/2020 12:00:00 AM EDT 1.0 {capsule} active Flomax 0.4 MG eCW1 ([facility]) 0.4 mg 08/20/2020 12:00:00 AM EDT capsule 30 TAKE ONE CAPSULE BY MOUTH EVERY DAY TAKE ONE CAPSULE BY MOUTH EVERY DAY SOLD: 08/21/2020 [facility] Prednisone 10 MG Oral Tablet PredniSONE 10 MG PredniSONE 10 MG 08/20/2020 12:00:00 AM EDT 1.0 {tablet} suspended PredniSONE 10 MG eCW1 ([facility]) 10 mg 08/20/2020 12:00:00 AM EDT tablet 18 TAKE THREE TABLETS ONCE DAILY FOR 3 DAYS, THEN TWO TABLETS DAILY FOR 3 DAYS, THEN ONE TABLET DAILY FOR 3 DAYS TAKE THREE TABLETS ONCE DAILY FOR 3 DAYS, THEN TWO TABLETS DAILY FOR 3 DAYS, THEN ONE TABLET DAILY FOR 3 DAYS SOLD: 08/21/2020 [facility] 10 mg 07/15/2020 12:00:00 AM EDT tablet 90 TAKE ONE TABLET BY MOUTH EVERY DAY TAKE ONE TABLET BY MOUTH EVERY DAY SOLD: 10/26/2020 [facility] 10 mg 07/15/2020 12:00:00 AM EDT tablet 90 TAKE ONE TABLET BY MOUTH EVERY DAY TAKE ONE TABLET BY MOUTH EVERY DAY SOLD: 07/16/2020 [facility] 1 % 04/02/2020 12:00:00 AM EDT drops,suspension 5 INSTILL ONE DROP INTO LEFT EYE EVERY 2 HOURS WHILE AWAKE DIRECTED INSTILL ONE DROP INTO LEFT EYE EVERY 2 HOURS WHILE AWAKE DIRECTED SOLD: 04/02/2020 [facility] 10 mg 01/11/2020 12:00:00 AM EDT tablet 90 TAKE ONE TABLET BY MOUTH EVERY DAY TAKE ONE TABLET BY MOUTH EVERY DAY SOLD: 04/23/2020 [facility] 10 mg 01/11/2020 12:00:00 AM EDT tablet 90 TAKE ONE TABLET BY MOUTH EVERY DAY TAKE ONE TABLET BY MOUTH EVERY DAY SOLD: 01/13/2020 [facility] 10 mg 07/27/2019 12:00:00 AM EDT tablet 90 TAKE ONE TABLET BY MOUTH EVERY DAY TAKE ONE TABLET BY MOUTH EVERY DAY SOLD: 10/20/2019 [facility] Insurance Providers Payer name Policy type / Coverage type Policy ID Covered democrat ID Covered democrat's relationship to mendoza Policy Mendoza Plan Information [facility] COMMUNITY PLAN [facility] [id number] SP [id number] [facility](MCAID) O [id number] S [id number] [facility] COMMUNITY PLAN XIX [id number] 18 [id number] ANSI-Medicaid [id number] [facility] Community Plan Commercial [id number] Self [id number] [facility] Community Plan Commercial [id number] Self [id number] [facility] Community Plan Commercial [id number] Self [id number] [facility]-Medicaid [id number] ANS-Medicaid [id number] [facility] [id number] SP [id number] [facility] [id number] SP [id number] ANS-Medicaid [id number] ANS-Medicaid [id number] [facility] [id number] SP [id number] [facility] [id number] SP [id number] [facility] Health Maintenance Organization (HMO) [id number] Self [id number] [facility] [id number] SP [id number] MEDICAID [id number] SP [id number] SELF PAY UNAVAILABLE SP UNAVAILA BLE Problems, Conditions, and Diagnoses Code Display Name Description Problem Type Effective Dates Data Source(s) I45.9 [id number] Skipped heart beats Problem 11/26/2020 12:00 :00 AM EST eCW1 ([facility]) N40.1 [id number] Benign prostatic hyp erplasia with lower urinary tract symptoms Problem 08/20/2020 12:00:00 AM EDT eCW1 ([facility]) Surgeries/Procedures Procedure Description Date Indications Data Source(s) ECG ROUTINE ECG W/LEAST 12 LDS W/I&R 11/26/2020 12:00: 00 AM EST eCW1 ([facility]) Results ID Date Data Source PSA SCREENING 11/26/2020 12:00:00 AM EST eCW1 ([facility]) Name Value Range Interpretation Code Description Data Stephany rce(s) Supporting Document(s) 2.08 < 4.00 PSA SCREENING eCW1 ([facility]) ID Date Data Source Comprehensive Metabolic Profile (CMP) 11/26/2020 12:00:00 AM EST eCW1 ([facility]) Name Value Range Interpretation Code Description Data Stephany rce(s) Supporting Document(s) 13 7-18 BLOOD UREA NITROGEN eCW1 ([facility]) 86 70-100 GLUCOSE, FASTING eCW1 ([facility]) 141 136-145 SODIUM LEVEL eCW1 ([facility]) > 60.0 >49 GLOMERULAR FILTRATION RATE eCW 1 ([facility]) 4.2 3.5-5.1 POTASSIUM SERUM eCW1 ([facility]) 0.89 0.70-1.30 CREATININE FOR GFR eCW1 ([facility]) 9 7-37 AST/SGOT eCW1 ([facility]) 9.5 8.8-10.2 CALCIUM LEVEL eCW1 ([facility]) 29 21-32 CARBON DIOXIDE LEVEL eCW1 ([facility]) 107 98-107 CHLORIDE LEVEL eCW1 ([facility]) 7.1 6.4-8.2 TOTAL PROTEIN eCW1 ([facility]) 26 12-78 ALT/SGPT eCW1 ([facility]) 0.2 0.2-1.0 BILIRUBIN,TOTAL eCW1 ([facility]) 47 45-117 ALKALINE PHOSPHATASE eCW1 ([facility]) 1.4 ALBUMIN/GLOBULIN RATIO eCW1 ([facility]) 4.2 3.2-5.2 ALBUMIN eCW1 ([facility]) ID Date Data Source CBC - Complete Blood Count 11/26/2020 12:00:00 AM EST eCW1 ( [facility]) Name Value Range Interpretation Code Description Data Stephany rce(s) Supporting Document(s) 4.38 4.30-6.10 RED BLOOD COUNT eCW1 ([facility]) 9.4 4.0-10.0 WHITE BLOOD COUNT eCW1 ([facility]) 13.6 13.5-17.5 HEMOGLOBIN eCW1 ([facility]) 31.1 27.0-33.0 MEAN CORPUSCULAR HEMOGLOB IN eCW1 ([facility]) 93.4 80.0-96.0 MEAN CORPUSCULAR VOLUME e CW1 ([facility]) 40.9 42.0-52.0 HEMATOCRIT eCW1 ([facility]) 207 150-450 PLATELET COUNT, AUTOMATED eCW1 ([facility]) 12.2 11.5-14.5 RED CELL DISTRIBUTION WID TH eCW1 ([facility]) 33.3 32.0-36.5 MEAN CORPUSCULAR HGB CONC eCW1 ([facility]) Procedure Social History Code Duration Value Status Description Data Source(s ) Smoking 11/26/2020 12:00:00 AM EST Current Smoker completed Curre nt Smoker eCW1 ([facility]) Smoking 11/26/2020 12:00:00 AM EST Current Smoker completed Curre nt Smoker eCW1 ([facility]) Smoking 08/23/2020 12:00:00 AM EDT Current Smoker completed Curre nt Smoker eCW1 ([facility]) Smoking 08/23/2020 12:00:00 AM EDT Current Smoker completed Curre nt Smoker eCW1 ([facility]) Smoking 08/23/2020 12:00:00 AM EDT Current Smoker completed Curre nt Smoker eCW1 ([facility]) Smoking 08/23/2020 12:00:00 AM EDT Current Smoker completed Curre nt Smoker eCW1 ([facility]) Smoking 08/20/2020 12:00:00 AM EDT Current Smoker completed Curre nt Smoker eCW1 ([facility]) Vital Signs ID Date Data Source UNK Name Value Range Interpretation Code Description Data Source(s) Diastolic blood pressure 70 mm[Hg] 70 mm[Hg] eCW1 ([facility]) Systolic blood pressure 136 mm[Hg] 136 mm[Hg] e CW1 ([facility]) Body temperature 99.1 [degF] 99.1 [degF] eCW1 ( [facility]) Respiratory rate 18 /min 18 /min eCW1 ([facility]) Heart rate 90 /min 90 /min eCW1 ([facility]) Body mass index (BMI) [Ratio] 29.29 kg/m2 29.29 kg/m2 eCW1 ([facility]) Body height 60 [in_i] 60 [in_i] eCW1 ([facility]) Body weight 150.0 [lb_av] 150.0 [lb_av] eCW1 ([facility]) Diastolic blood pressure 78 mm[Hg] 78 mm[Hg] eCW1 ([facility]) Systolic blood pressure 148 mm[Hg] 148 mm[Hg] e CW1 ([facility]) Body temperature 97.6 [degF] 97.6 [degF] eCW1 ( [facility]) Respiratory rate 18 /min 18 /min eCW1 ([facility]) Heart rate 68 /min 68 /min eCW1 ([facility]) Body mass index (BMI) [Ratio] 31.67 kg/m2 31.67 kg/m2 W1 ([facility]) Body height 60 [in_i] 60 [in_i] eCW1 ([facility]) Body weight 162.2 [lb_av] 162.2 [lb_av] eCW1 ([facility]) Patient Treatment Plan of Care Planned Activity Planned Date Details Description Data Source (s) 60 ACTUAT Fluticasone propionate 0.25 MG /ACTUAT / salmeterol 0.05 MG/ACTUAT Dry Powder Inhaler [Advair] 11/26/2020 12:00:00 AM EST eCW1 ([facility]) Albuterol Sulfate HFA 108 (90 Base) MCG/ACT 11/26/2020 12:00:00 AM EST eCW1 ([facility]) 60 ACTUAT Fluticasone propionate 0.25 MG /ACTUAT / salmeterol 0.05 MG/ACTUAT Dry Powder Inhaler [Advair] 11/26/2020 12:00:00 AM EST eCW1 ([facility]) Albuterol Sulfate HFA 108 (90 Base) MCG/ACT 11/26/2020 12:00:00 AM EST eCW1 ([facility]) Tamsulosin hydrochloride 0.4 MG Oral Capsule [Flomax] 08/20/2020 12:00:00 AM EDT eCW1 ([facility]) 30 ACTUAT fluticasone furoate 0.2 MG/ACT UAT / vilanterol 0.025 MG/ACTUAT Dry Powder Inhaler [Breo] 08/20/2020 12:00:00 AM EDT eCW1 ([facility]) Prednisone 10 MG Oral Tablet 08/20/2020 12:00:00 AM EDT eCW1 ([facility]) Tamsulosin hydrochloride 0.4 MG Oral Capsule [Flomax] 08/20/2020 12:00:00 AM EDT eCW1 ([facility]) 30 ACTUAT fluticasone furoate 0.2 MG/ACT UAT / vilanterol 0.025 MG/ACTUAT Dry Powder Inhaler [Breo] 08/20/2020 12:00:00 AM EDT eCW1 ([facility]) Prednisone 10 MG Oral Tablet 08/20/2020 12:00:00 AM EDT eCW1 ([facility]) Tamsulosin hydrochloride 0.4 MG Oral Capsule [Flomax] 08/20/2020 12:00:00 AM EDT eCW1 ([facility]) 30 ACTUAT fluticasone furoate 0.2 MG/ACT UAT / vilanterol 0.025 MG/ACTUAT Dry Powder Inhaler [Breo] 08/20/2020 12:00:00 AM EDT eCW1 ([facility]) Prednisone 10 MG Oral Tablet 08/20/2020 12:00:00 AM EDT eCW1 ([facility]) Tamsulosin hydrochloride 0.4 MG Oral Capsule [Flomax] 08/20/2020 12:00:00 AM EDT eCW1 ([facility]) 30 ACTUAT fluticasone furoate 0.2 MG/ACT UAT / vilanterol 0.025 MG/ACTUAT Dry Powder Inhaler [Breo] 08/20/2020 12:00:00 AM EDT eCW1 ([facility]) Prednisone 10 MG Oral Tablet 08/20/2020 12:00:00 AM EDT eCW1 ([facility]) Tamsulosin hydrochloride 0.4 MG Oral Capsule [Flomax] 08/20/2020 12:00:00 AM EDT eCW1 ([facility]) 30 ACTUAT fluticasone furoate 0.2 MG/ACT UAT / vilanterol 0.025 MG/ACTUAT Dry Powder Inhaler [Breo] 08/20/2020 12:00:00 AM EDT eCW1 ([facility]) Prednisone 10 MG Oral Tablet 08/20/2020 12:00:00 AM EDT eCW1 ([facility])
--- OUTSIDE RECORDS SUMMARY | 2020-12-13 14:15 | CCD ---
Author Author [facility] Organization [facility] Address Unknown Phone Unavailable Care Team Providers Care Chief Medical Officer Name Role Phone Virginiagoran Cat Unavailable PROBLEMS Type Condition ICD9-CM Code AYS18-MU Code Onset Dates Condition S tatus SNOMED Code Notes Problem Bilateral hearing loss, unspecified hearing loss type H91.93 Active 78350833 Problem Tobacco abuse Z72.0 Active 976268308 Problem Emphysema (subcutaneous) resulting from a procedure, initial encounter T81.82XA Active 07674180 Problem Cigarette smoker F17.210 Active 17308364 Problem Pulmonary emphysema, unspecified emphysema type J4 3.9 Active 03136742 Problem Benign prostatic hyperplasia with lower urinary tract symptoms N40.1 Active 298487780352341 Problem Essential tremor G25.0 Active 467838927 Problem Carboxyhemoglobinemia, undetermined intent, 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 Active 212685698 Problem Essential hypertension I10 Active 50258728 Problem Carpal tunnel syndrome of right wrist G56.01 Ac tive [id number] ALLERGIES Allergen (clinical drug ingredient) Drug/Non Drug Allergy do cumented on EMR Reaction Allergy Type Onset Date Status tylenol back pain started wh en he stopped tylenol with codiene and took plain tylenol Non Drug Allergy Active ENCOUNTERS from 1960 to 2020-10-10 Encounter Location Date Provider Diagnosis [facility] [place] [address] [place] [address] Sep, Cat Sanchez IMMUNIZATIONS Vaccine Route Administration Date Status Pneumococcal [...] Education Language: Question Answer Notes Languages spoken: Romansh Muslim: Question Answer Notes Muslim 33 None Sexual Hx: Question Answer Notes [...] a: current smoker Smoking Cessation Information Given 01/24/2018 Patient counseled on the dangers of tobacco use and urged to quit: 01/24/2018 How many cigarettes a day do you smoke? 5 or less Are you interested in quitting? Not ready to quit REASON FOR REFERRAL No Information VITAL SIGNS No information MEDICATIONS Medication SIG (Take, Route, Frequency, Duration) Notes Start Da te End Date Status PredniSONE 10 MG 1 tablet Orally as directed 3 tabs x 3 days 2 tabs x 3 days 1 tab x 3 days for 9 days Jul, Active Breo Ellipta 200-25 MCG/INH 1 puff Inhalation Once a day for 30 days Jul, Active Flomax 0.4 MG 1 capsule Orally Once a day for 30 day(s) Jul, Active AmLODIPine Besylate 10 MG 1 tablet Orally Once a day for 90 days Active PROCEDURES No Information RESULTS No Results REASON FOR VISIT no show MEDICAL (GENERAL) HISTORY Type Description Date Medical [...] No Information FUNCTIONAL STATUS No Information ASSESSMENTS No Information PLAN OF TREATMENT Medication Medication Name Sig Start Date Stop Date PredniSONE 10 MG 1 tablet Orally as directed 3 tabs x 3 days 2 tabs x 3 days 1 tab x 3 days for 9 days Jul, Flomax 0.4 MG 1 capsule Orally Once a day for 30 day(s) Jul Breo Ellipta 200-25 MCG/INH 1 puff Inhalation Once a day for 30 days Jul, Insurance Providers Payer Name Payer Address Payer Phone Insured Name Patient Relati onship to Insured Coverage Start Date Coverage End Date [facility] [facility] [address] [facility] [phone] [employer]MAN self
--- OUTSIDE RECORDS SUMMARY | 2020-12-13 14:15 | CCD ---
Author Author [facility] Organization [facility] Address Unknown Phone Unavailable Care Team Providers Care Call Out Operator Name Role Phone Cat Sanchez Unavailable PROBLEMS Type Condition ICD9-CM Code XQL07-GU Code Onset Dates Condition S tatus SNOMED Code Notes Problem Tobacco abuse Z72.0 Active 648987884 Problem Emphysema (subcutaneous) resulting from a procedure, initial encounter T81.82XA Active 58215958 Problem Essential tremor G25.0 Active 819113937 Problem Benign prostatic hyperplasia with lower urinary tract symptoms N40.1 Active 564805070156014 Problem Bilateral hearing loss, unspecified hearing loss type H91.93 Active 71132251 Problem Skipped heart beats I45.9 Active 419935790 Problem Pulmonary emphysema, unspecified emphysema type J4 3.9 Active 35448014 Problem Carboxyhemoglobinemia, undetermined intent, 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 Active 017169735 Problem Essential hypertension I10 Active 11656955 Problem Carpal tunnel syndrome of right wrist G56.01 Ac tive 800743691970038 Problem Cigarette smoker F17.210 Active 95703495 ALLERGIES Allergen (clinical drug ingredient) Drug/Non Drug Allergy do cumented on EMR Reaction Allergy Type Onset Date Status tylenol back pain started wh en he stopped tylenol with codiene and took plain tylenol Non Drug Allergy Active ENCOUNTERS from 1960 to 2020-11-27 Encounter Location Date Provider [facility] [address] [place] [address] Oct, Cat Sanchez IMMUNIZATIONS Vaccine Route Administration Date [...] Education Language: Question Answer Notes Languages spoken: Pashto Faith: Question Answer Notes Faith 33 None Sexual Hx: Question Answer Notes [...] Information RESULTS No Results REASON FOR VISIT PA fluticasone salmeterol 250-50mcg MEDICAL (GENERAL) HISTORY Type Description Date Medical [...] Twice a day for 30 days Oct, Next Appt Details Provider Name:Cat Naya Sanchez, 08:00:00 AM, [address] [place], [address], Insurance Providers Payer Name Payer Address Payer Phone Insured Name Patient Relati onship to Insured Coverage Start Date Coverage End Date [facility]AN [facility] [address] [facility] [address] SUNDEEP BERMAN self
--- OUTSIDE RECORDS SUMMARY | 2020-12-13 14:15 | CCD ---
Author Author [facility] Organization [facility] Address Unknown Phone Unavailable Care Team Providers [place] Supervisor Name Role Phone Virginiagoran Cat Unavailable PROBLEMS Type Condition ICD9-CM Code [id number]-VM Code Onset Dates Condition S tatus SNOMED Code Notes Problem Bilateral hearing loss, unspecified hearing loss type H91.93 Active 38409338 Problem Tobacco abuse Z72.0 Active 938371297 Problem Emphysema (subcutaneous) resulting from a procedure, initial encounter T81.82XA Active 28559100 Problem Cigarette smoker F17.210 Active 23843256 Problem Pulmonary emphysema, unspecified emphysema type J4 3.9 Active 62910230 Problem Benign prostatic hyperplasia with lower urinary tract symptoms N40.1 Active 679684267387545 Problem Essential tremor G25.0 Active 338719047 Problem Carboxyhemoglobinemia, undetermined intent, 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 Active 095388282 Problem Essential hypertension I10 Active 60406620 Problem Carpal tunnel syndrome of right wrist G56.01 Ac tive 280653295296141 ALLERGIES Allergen (clinical drug ingredient) Drug/Non Drug Allergy do cumented on EMR Reaction Allergy Type Onset Date Status tylenol back pain started wh en he stopped tylenol with codiene and took plain tylenol Non Drug Allergy Active ENCOUNTERS from 1960 to 2020-11-23 Encounter Location Date Provider Diagnosis [facility] [address] [place] [address] Oct, Cat Sanchez IMMUNIZATIONS Vaccine Route Administration [...] Education Language: Question Answer Notes Languages spoken: Slovak Yarsani: Question Answer Notes Yarsani 33 None Sexual Hx: Question Answer Notes [...] Information RESULTS No Results REASON FOR VISIT Breathing issues MEDICAL (GENERAL) HISTORY Type Description Date [...] Once a day for 30 days Jul, Next Appt Details Provider Name:Cat Sanchez, 11:30:00 AM, [facility] [place], [address], Insurance Providers Payer Name Payer Address Payer Phone Insured Name Patient Relati onship to Insured Coverage Start Date Coverage End Date [facility] [address] [facility] [address] SUNDEEP BERMAN self
--- NOTE | 2020-12-13 14:39 | REP ---
INDICATION: FALL. COMPARISON: Comparison right wrist radiographs are from 15 April 2009.. TECHNIQUE: Four views of the right wrist. FINDINGS: Four views of the right wrist demonstrate overall normal mineralization. There is no evidence of fracture or subluxation. The metacarpals and distal radius and ulna appear intact. IMPRESSION: No fracture or subluxation seen. <Electronically signed by Trever Noe > 12/13/20 [id number]
--- OUTSIDE RECORDS SUMMARY | 2020-12-13 15:08 | CCD ---
Author Author [facility] Organization [facility] Address Unknown Phone Unavailable Support Name Relationship Address Phone ROSIE OLLIE Next Of Kin [facility] [place] [address] ANA BERMAN Next Of Kin [address] [place] [address] DISABLED Next Of Kin Unknown Unavailable UNEMPLOYED [place] [address] UE Next Of Kin Unknown Unavailable [place] [address] [employer] [place] [address] [place] [address] Ollie Berman ECON [address] [place] [address] Unavailable Brenda Berman ECON [address] [place] [address] [phone] Re-disclosure Warning The records that you are [...] is protected by Article 27-F of the [place] Public Health law. If you continue you may have access to information: Regarding HIV / AIDS; Provided by facilities licensed or operated by the [facility] Office of Mental Health; or Provided by the [facility] Office for People With Developmental Disabilities. If such information is present, then the following [facility] mandated warning applies: This information has [...] law may result in a fine or retirement sentence or both. A general authorization for the release of medical or other information is NOT sufficient authorization for further disc losure. Family History Family Member Name Family Member Gender Family Member Status Date o f Status Description Data Source(s) Unknown Male Problem MEDENT ([facility]) Unknown Unknown Problem MEDENT ([facility] ) Encounters Encounter Providers Location Date Indications Data Source(s ) Outpatient [address] [facility] [place] [address] 11/26/2020 12:00:00 AM EST eCW1 ([facility]) Unknown [address] [facility] [address] 11/26/2020 12:00:00 AM EST [facility] Unknown [address] [facility] [address] 11/20/2020 12:00:00 AM EST [facility] Unknown [address] [facility] [address] 10/09/2020 12:00:00 AM EST eCW1 ([facility]) Unknown [address] [facility] [address] 09/04/2020 12:00:00 AM EST eCW1 ([facility]) Outpatient [address] [facility] [address] 08/20/2020 12:00:00 AM EDT eCW1 ([facility]) Unknown [address] [facility] [address] 08/15/2020 12:00:00 AM EDT eCW1 ([facility]) [facility] [address] [facility] [place] [address] 03/07/2020 12:00:00 AM EDT eCW1 ([facility]) [facility] [address] [facility] [place] [address] 01/09/2020 12:00:00 AM EDT eCW1 ([facility]) [facility] [address] [facility] [place] [address] 01/09/2020 12:00:00 AM EDT eCW1 ([facility]) Immunizations Vaccine Date Status Description Data Source(s) [...] activ e Advair Diskus 250-50 MCG/DOSE eCW1 ([facility]) Albuterol Sulfate HFA 108 (90 Base) MCG/ACT Albuterol Sulfate HFA 108 (90 Base) MCG/ACT 11/26/2020 12:00:00 AM EST 2.0 {puff_as_needed} active Albuterol Sulfate HFA 108 (90 Base) MCG/ACT eCW1 ([facility]) Albuterol Sulfate HFA 108 (90 Base) MCG/ACT Albuterol Sulfate HFA 108 (90 Base) MCG/ACT 11/26/2020 12:00:00 AM EST 2.0 {puff_as_needed} active Albuterol Sulfate HFA 108 (90 Base) MCG/ACT eCW1 ([facility]) 60 ACTUAT Fluticasone propionate 0.25 MG /ACTUAT / salmeterol 0.05 MG/ACTUAT Dry Powder Inhaler [Advair] Advair Diskus 250-50 MCG/DOSE Advair Diskus 250-50 MCG/DOSE 11/26/2020 12:00:00 AM EST 1.0 {puff} activ e Advair Diskus 250-50 MCG/DOSE eCW1 ([facility]) Prednisone 10 MG Oral Tablet PredniSONE 10 MG PredniSONE 10 MG 08/20/2020 12:00:00 AM EDT 1.0 {tablet} active Pr edniSONE 10 MG eCW1 ([facility]) Prednisone 10 MG Oral Tablet PredniSONE 10 MG PredniSONE 10 MG 08/20/2020 12:00:00 AM EDT 1.0 {tablet} suspended PredniSONE 10 MG eCW1 ([facility]) Prednisone 10 MG Oral Tablet PredniSONE 10 MG PredniSONE 10 MG 08/20/2020 12:00:00 AM EDT 1.0 {tablet} active Pr edniSONE 10 MG eCW1 ([facility]) Prednisone 10 MG Oral Tablet PredniSONE 10 MG PredniSONE 10 MG 08/20/2020 12:00:00 AM EDT 1.0 {tablet} active Pr edniSONE 10 MG eCW1 ([facility]) 30 ACTUAT fluticasone furoate 0.2 MG/ACT UAT / vilanterol 0.025 MG/ACTUAT Dry Powder Inhaler [Breo] Breo Ellipta 200-25 MCG/INH Breo Ellipta 200-25 MCG/INH 08/20/2020 12:00:00 AM EDT 1.0 {puff} active Breo Ellipta 200-25 MCG/INH eCW1 ([facility]) 30 ACTUAT fluticasone furoate 0.2 MG/ACT UAT / vilanterol 0.025 MG/ACTUAT Dry Powder Inhaler [Breo] Breo Ellipta 200-25 MCG/INH Breo Ellipta 200-25 MCG/INH 08/20/2020 12:00:00 AM EDT 1.0 {puff} active Breo Ellipta 200-25 MCG/INH eCW1 ([facility]) Tamsulosin hydrochloride 0.4 MG Oral Capsule [Flomax] Flomax 0.4 MG Flomax 0.4 MG 08/20/2020 12:00:00 AM EDT 1.0 {capsule} active Flomax 0.4 MG eCW1 ([facility]) Tamsulosin hydrochloride 0.4 MG Oral Capsule [Flomax] Flomax 0.4 MG Flomax 0.4 MG 08/20/2020 12:00:00 AM EDT 1.0 {capsule} active Flomax 0.4 MG eCW1 ([facility]) Tamsulosin hydrochloride 0.4 MG Oral Capsule [Flomax] Flomax 0.4 MG Flomax 0.4 MG 08/20/2020 12:00:00 AM EDT 1.0 {capsule} active Flomax 0.4 MG eCW1 ([facility]) Tamsulosin hydrochloride 0.4 MG Oral Capsule [Flomax] Flomax 0.4 MG Flomax 0.4 MG 08/20/2020 12:00:00 AM EDT 1.0 {capsule} suspended Flomax 0.4 MG eCW1 ([facility]) 30 ACTUAT fluticasone furoate 0.2 MG/ACT UAT / vilanterol 0.025 MG/ACTUAT Dry Powder Inhaler [Breo] Breo Ellipta 200-25 MCG/INH Breo Ellipta 200-25 MCG/INH 08/20/2020 12:00:00 AM EDT 1.0 {puff} active Breo Ellipta 200-25 MCG/INH eCW1 ([facility]) Prednisone 10 MG Oral Tablet PredniSONE 10 MG PredniSONE 10 MG 08/20/2020 12:00:00 AM EDT 1.0 {tablet} active Pr edniSONE 10 MG eCW1 ([facility]) Tamsulosin hydrochloride 0.4 MG Oral Capsule [Flomax] Flomax 0.4 MG Flomax 0.4 MG 08/20/2020 12:00:00 AM EDT 1.0 {capsule} suspended Flomax 0.4 MG eCW1 ([facility]) Prednisone 10 MG Oral Tablet PredniSONE 10 MG PredniSONE 10 MG 08/20/2020 12:00:00 AM EDT 1.0 {tablet} active Pr edniSONE 10 MG eCW1 ([facility]) 30 ACTUAT fluticasone furoate 0.2 MG/ACT UAT / vilanterol 0.025 MG/ACTUAT Dry Powder Inhaler [Breo] Breo Ellipta 200-25 MCG/INH Breo Ellipta 200-25 MCG/INH 08/20/2020 12:00:00 AM EDT 1.0 {puff} active Breo Ellipta 200-25 MCG/INH eCW1 ([facility]) 30 ACTUAT fluticasone furoate 0.2 MG/ACT UAT / vilanterol 0.025 MG/ACTUAT Dry Powder Inhaler [Breo] Breo Ellipta 200-25 MCG/INH Breo Ellipta 200-25 MCG/INH 08/20/2020 12:00:00 AM EDT 1.0 {puff} active Breo Ellipta 200-25 MCG/INH eCW1 ([facility]) Tamsulosin hydrochloride 0.4 MG Oral Capsule [Flomax] Flomax 0.4 MG Flomax 0.4 MG 08/20/2020 12:00:00 AM EDT 1.0 {capsule} active Flomax 0.4 MG eCW1 ([facility]) Tamsulosin hydrochloride 0.4 MG Oral Capsule [Flomax] Flomax 0.4 MG Flomax 0.4 MG 08/20/2020 12:00:00 AM EDT 1.0 {capsule} active Flomax 0.4 MG eCW1 ([facility]) 0.4 mg 08/20/2020 12:00:00 AM EDT capsule 30 TAKE ONE CAPSULE BY MOUTH EVERY DAY TAKE ONE CAPSULE BY MOUTH EVERY DAY SOLD: 08/21/2020 [facility] Prednisone 10 MG Oral Tablet PredniSONE 10 MG PredniSONE 10 MG 08/20/2020 12:00:00 AM EDT 1.0 {tablet} suspended PredniSONE 10 MG eCW1 ([facility]) 10 mg 08/20/2020 12:00:00 AM EDT tablet [...] type / Coverage type Policy ID Covered libertarian ID Covered libertarian's relationship to mendoza Policy Mendoza Plan Information FORMERLY [facility] COMMUNITY PLAN [facility] [id number] SP [id number] FOR[facility] [id number] SP [id number] [facility] O [id number] S [id number] FORMERLY [facility] COMMUNITY PLAN XIX [id number] 18 [id number] ANSI-Medicaid [id number] [facility] Community Plan Commercial [id number] Self [id number] [facility] Community Plan Commercial [id number] Self [id number] [facility] Community Plan Commercial [id number] Self [id number] ANSI-Medicaid [id number] ANSI-Medicaid [id number] [facility]LY [facility] COMMUNITY PLAN [facility] [id number] SP [id number] ANSI-Medicaid [id number] ANSI-Medicaid [id number] FORMERLY [facility] COMMUNITY PLAN [facility] [id number] SP [id number] [facility] PLAN [facility] [id number] SP [id number] [facility] Health Maintenance Organization (HMO) [id number] [facility] PLAN [id number] SP [id number] MEDICAID [id number] SP [id number] SELF PAY UNAVAILABLE SP UNAVAILA BLE Problems, Conditions, and Diagnoses Code Display Name Description Problem Type Effective Dates Data Source(s) I45.9 [id number] Skipped heart beats Problem 11/26/2020 12:00 :00 AM EST eCW1 ([facility]) N40.1 [id number] Benign prostatic hyp erplasia with lower urinary tract symptoms Problem 08/20/2020 12:00:00 AM EDT eCW1 ([facility]) Surgeries/Procedures Procedure Description Date Indications Data Source(s) ECG ROUTINE ECG W/LEAST 12 LDS W/I&R 11/26/2020 12:00: 00 AM EST eCW1 ([facility]) Results ID Date Data Source PSA SCREENING 11/26/2020 12:00:00 AM EST eCW1 ([facility]) Name Value Range Interpretation Code Description Data Stephany rce(s) Supporting Document(s) 2.08 < 4.00 PSA SCREENING eCW1 ([facility]) ID Date Data Source Comprehensive Metabolic Profile (CMP) 11/26/2020 12:00:00 AM EST eCW1 ([facility]) Name Value Range Interpretation Code Description Data Stephany rce(s) Supporting Document(s) 13 7-18 BLOOD UREA NITROGEN eCW1 ([facility]) 86 70-100 GLUCOSE, FASTING eCW1 ([facility]) 141 136-145 SODIUM LEVEL eCW1 ([facility]) > 60.0 >49 GLOMERULAR FILTRATION RATE eCW 1 ([facility]) 4.2 3.5-5.1 POTASSIUM SERUM eCW1 ([facility]) 0.89 0.70-1.30 CREATININE FOR GFR eCW1 ([facility]) 9 7-37 AST/SGOT eCW1 ([facility]) 9.5 8.8-10.2 CALCIUM LEVEL eCW1 ([facility]) 29 21-32 CARBON DIOXIDE LEVEL eCW1 ([facility]) 107 98-107 CHLORIDE LEVEL eCW1 ([facility]) 7.1 6.4-8.2 TOTAL PROTEIN eCW1 ([facility]) 26 12-78 ALT/SGPT eCW1 ([facility]) 0.2 0.2-1.0 BILIRUBIN,TOTAL eCW1 ([facility]) 47 45-117 ALKALINE PHOSPHATASE eCW1 ([facility]) 1.4 ALBUMIN/GLOBULIN RATIO eCW1 ([facility]) 4.2 3.2-5.2 ALBUMIN eCW1 ([facility]) ID Date Data Source CBC - Complete Blood Count 11/26/2020 12:00:00 AM EST eCW1 ( [facility]) Name Value Range Interpretation Code Description Data Stephany rce(s) Supporting Document(s) 4.38 4.30-6.10 RED BLOOD COUNT eCW1 ([facility]) 9.4 4.0-10.0 WHITE BLOOD COUNT eCW1 ([facility]) 13.6 13.5-17.5 HEMOGLOBIN eCW1 ([facility]) 31.1 27.0-33.0 MEAN CORPUSCULAR HEMOGLOB IN eCW1 ([facility]) 93.4 80.0-96.0 MEAN CORPUSCULAR VOLUME e CW1 ([facility]) 40.9 42.0-52.0 HEMATOCRIT eCW1 ([facility]) 207 150-450 PLATELET COUNT, AUTOMATED eCW1 ([facility]) 12.2 11.5-14.5 RED CELL DISTRIBUTION WID TH eCW1 ([facility]) 33.3 32.0-36.5 MEAN CORPUSCULAR HGB CONC eCW1 ([facility]) Procedure Social History Code Duration Value Status Description Data Source(s ) Smoking 11/26/2020 12:00:00 AM EST Current Smoker completed Curre nt Smoker eCW1 ([facility]) Smoking 11/26/2020 12:00:00 AM EST Current Smoker completed Curre nt Smoker eCW1 ([facility]) Smoking 08/23/2020 12:00:00 AM EDT Current Smoker completed Curre nt Smoker eCW1 ([facility]) Smoking 08/23/2020 12:00:00 AM EDT Current Smoker completed Curre nt Smoker eCW1 ([facility]) Smoking 08/23/2020 12:00:00 AM EDT Current Smoker completed Curre nt Smoker eCW1 ([facility]) Smoking 08/23/2020 12:00:00 AM EDT Current Smoker completed Curre nt Smoker eCW1 ([facility]) Smoking 08/20/2020 12:00:00 AM EDT Current Smoker completed Curre nt Smoker eCW1 ([facility]) Vital Signs ID Date Data Source UNK Name Value Range Interpretation Code Description Data Source(s) Diastolic blood pressure 70 mm[Hg] 70 mm[Hg] eCW1 ([facility]) Systolic blood pressure 136 mm[Hg] 136 mm[Hg] e CW1 ([facility]) Body temperature 99.1 [degF] 99.1 [degF] eCW1 ( [facility]) Respiratory rate 18 /min 18 /min eCW1 ([facility]) Heart rate 90 /min 90 /min eCW1 ([facility]) Body mass index (BMI) [Ratio] 29.29 kg/m2 29.29 kg/m2 eCW1 ([facility]) Body height 60 [in_i] 60 [in_i] eCW1 ([facility]) Body weight 150.0 [lb_av] 150.0 [lb_av] eCW1 ([facility]) Diastolic blood pressure 78 mm[Hg] 78 mm[Hg] eCW1 ([facility]) Systolic blood pressure 148 mm[Hg] 148 mm[Hg] e CW1 ([facility]) Body temperature 97.6 [degF] 97.6 [degF] eCW1 ( [facility]) Respiratory rate 18 /min 18 /min eCW1 ([facility]) Heart rate 68 /min 68 /min eCW1 ([facility]) Body mass index (BMI) [Ratio] 31.67 kg/m2 31.67 kg/m2 W1 ([facility]) Body height 60 [in_i] 60 [in_i] eCW1 ([facility]) Body weight 162.2 [lb_av] 162.2 [lb_av] eCW1 ([facility]) Patient Treatment Plan of Care Planned Activity Planned Date Details Description Data Source (s) 60 ACTUAT Fluticasone propionate 0.25 MG /ACTUAT / salmeterol 0.05 MG/ACTUAT Dry Powder Inhaler [Advair] 11/26/2020 12:00:00 AM EST eCW1 ([facility]) Albuterol Sulfate HFA 108 (90 Base) MCG/ACT 11/26/2020 12:00:00 AM EST eCW1 ([facility]) 60 ACTUAT Fluticasone propionate 0.25 MG /ACTUAT / salmeterol 0.05 MG/ACTUAT Dry Powder Inhaler [Advair] 11/26/2020 12:00:00 AM EST eCW1 ([facility]) Albuterol Sulfate HFA 108 (90 Base) MCG/ACT 11/26/2020 12:00:00 AM EST eCW1 ([facility]) Tamsulosin hydrochloride 0.4 MG Oral Capsule [Flomax] 08/20/2020 12:00:00 AM EDT eCW1 ([facility]) 30 ACTUAT fluticasone furoate 0.2 MG/ACT UAT / vilanterol 0.025 MG/ACTUAT Dry Powder Inhaler [Breo] 08/20/2020 12:00:00 AM EDT eCW1 ([facility]) Prednisone 10 MG Oral Tablet 08/20/2020 12:00:00 AM EDT eCW1 ([facility]) Tamsulosin hydrochloride 0.4 MG Oral Capsule [Flomax] 08/20/2020 12:00:00 AM EDT eCW1 ([facility]) 30 ACTUAT fluticasone furoate 0.2 MG/ACT UAT / vilanterol 0.025 MG/ACTUAT Dry Powder Inhaler [Breo] 08/20/2020 12:00:00 AM EDT eCW1 ([facility]) Prednisone 10 MG Oral Tablet 08/20/2020 12:00:00 AM EDT eCW1 ([facility]) Tamsulosin hydrochloride 0.4 MG Oral Capsule [Flomax] 08/20/2020 12:00:00 AM EDT eCW1 ([facility]) 30 ACTUAT fluticasone furoate 0.2 MG/ACT UAT / vilanterol 0.025 MG/ACTUAT Dry Powder Inhaler [Breo] 08/20/2020 12:00:00 AM EDT eCW1 ([facility]) Prednisone 10 MG Oral Tablet 08/20/2020 12:00:00 AM EDT eCW1 ([facility]) Tamsulosin hydrochloride 0.4 MG Oral Capsule [Flomax] 08/20/2020 12:00:00 AM EDT eCW1 ([facility]) 30 ACTUAT fluticasone furoate 0.2 MG/ACT UAT / vilanterol 0.025 MG/ACTUAT Dry Powder Inhaler [Breo] 08/20/2020 12:00:00 AM EDT eCW1 ([facility]) Prednisone 10 MG Oral Tablet 08/20/2020 12:00:00 AM EDT eCW1 ([facility]) Tamsulosin hydrochloride 0.4 MG Oral Capsule [Flomax] 08/20/2020 12:00:00 AM EDT eCW1 ([facility]) 30 ACTUAT fluticasone furoate 0.2 MG/ACT UAT / vilanterol 0.025 MG/ACTUAT Dry Powder Inhaler [Breo] 08/20/2020 12:00:00 AM EDT eCW1 ([facility]) Prednisone 10 MG Oral Tablet 08/20/2020 12:00:00 AM EDT eCW1 ([facility])
== END 2020-12-13 16:03 | disposition home or self-care (01) ==
LOC: M ED 14:07
DX: S63.521A Sprain of radiocarpal joint of right wrist, initial encounter (principal); W00.0XXA Fall on same level due to ice and snow, initial encounter; Y92.018 Other place in single-family (private) house as the place of occurrence of the external cause; I10 Essential (primary) hypertension; Z79.899 Other long term (current) drug therapy; Z88.8 Allergy status to other drugs, medicaments and biological substances; Z87.891 Personal history of nicotine dependence

== ENCOUNTER → 2021-04-01 | Outpatient (CLI) | payer OTHER ==
--- NOTE | 2021-04-01 09:48 | REP ---
INDICATION: SCREENING FOR LUNG CA COMPARISON: 10/04/2018 TECHNIQUE: Axial noncontrast images from the thoracic inlet to the upper abdomen using low-dose lung screening technique (LDCT). FINDINGS: Mild biapical scarring and small anteromedial bullae/blebs along with mild emphysematous changes noted small scattered calcifications consistent with prior granulomatous disease. No acute consolidation, significant nodule or mass. No effusion. No pneumothorax. Tracheobronchial tree is patent. IMPRESSION: Lung-RADS category 2. No suspicious nodule or mass. Management recommendations include annual low-dose CT surveillance. <Electronically signed by Shoaib Lee > 04/01/21 0944
== END ==
LOC: M RAD 08:10
PROVIDERS: ATTEND Nurse Practitioner Adult Health
DX: Z12.2 Encounter for screening for malignant neoplasm of respiratory organs (principal)

== ENCOUNTER → 2022-08-25 | Outpatient (CLI) | payer OTHER ==
[2022-08-25 17:11] LABS: ALBUMIN 3.7 GM/DL (3.2-5.2); ALT/SGPT 19 U/L (12-78); BILIRUBIN,TOTAL 0.4 MG/DL (0.2-1.0); BLOOD UREA NITROGEN 11 MG/DL (7-18); CALCIUM LEVEL 8.7 MG/DL (8.8-10.2); CARBON DIOXIDE LEVEL 27 MEQ/L (21-32); CHLORIDE LEVEL 109 MEQ/L (98-107); CHOLESTEROL LEVEL 144 MG/DL (<200); CREATININE FOR GFR 0.87 MG/DL (0.70-1.30); GLOMERULAR FILTRATION RATE > 60.0 (>49); GLUCOSE, FASTING 89 MG/DL (70-100); HDL CHOLESTEROL 36 MG/DL (>40); LDL CHOLESTEROL 92 MG/DL (<100); NON-HDL-C 108 MG/DL; POTASSIUM SERUM 4.4 MEQ/L (3.5-5.1); SODIUM LEVEL 140 MEQ/L (136-145); THYROID STIMULATING HORMONE 0.851 uIU/ML (0.358-3.740); TOTAL PROTEIN 6.3 GM/DL (6.4-8.2); TRIGLYCERIDES LEVEL 78 MG/DL (<150)
== END ==
LOC: M PLALAB 09:54
PROVIDERS: ATTEND Nurse Practitioner Adult Health
DX: I10 Essential (primary) hypertension (principal); Z12.5 Encounter for screening for malignant neoplasm of prostate; Z13.220 Encounter for screening for lipoid disorders

== ENCOUNTER 2022-11-17 09:05 | Emergency (ER) | payer OTHER ==
[~2022-11-17] VITALS: Ht 177.8 cm; Wt 66.9 kg
[2022-11-17 09:35] LABS: BASO # 0.1 10^3/uL (0.0-0.2); BASO % 0.8 % (0.0-1.0); EOS # 0.2 10^3/uL (0.0-0.5); EOS % 1.5 % (0.0-3.0); HEMATOCRIT 41.9 % (42.0-52.0); HEMOGLOBIN 13.8 g/dl (13.5-17.5); LYMPH # 1.8 10^3/uL (1.5-5.0); LYMPH % 17.2 % (24.0-44.0); MEAN CORPUSCULAR HEMOGLOBIN 30.7 pg (27.0-33.0); MEAN CORPUSCULAR HGB CONC 32.9 g/dl (32.0-36.5); MEAN CORPUSCULAR VOLUME 93.1 fl (80.0-96.0); MONO # 0.6 10^3/uL (0.0-0.8); MONO % 5.7 % (2.0-8.0); NEUTROPHILS # 7.9 10^3/uL (1.5-8.5); NEUTROPHILS % 74.3 % (36.0-66.0); PLATELET COUNT, AUTOMATED 199 10^3/uL (150-450); WHITE BLOOD COUNT 10.6 10^3/uL (4.0-10.0)
[2022-11-17 09:49] LABS: INR 0.91; PROTHROMBIN TIME 12.4 SECONDS (12.5-14.5)
[2022-11-17 09:56] LABS: LIPASE 45 U/L (12-53)
[2022-11-17 09:57] LABS: CPK CREATINE PHOSPHOKINASE 94 U/L (46-171)
[2022-11-17 09:58] LABS: ALBUMIN 4.1 G/DL (3.2-5.2); ALKALINE PHOSPHATASE 47 U/L (46-116); ALT/SGPT 21 U/L (7.0-40); AST/SGOT 19 U/L (<34); BILIRUBIN,DIRECT 0.1 MG/DL (<0.4); BILIRUBIN,TOTAL 0.3 MG/DL (0.3-1.2); BLOOD UREA NITROGEN 13 MG/DL (9-23); CARBON DIOXIDE LEVEL 28 MMOL/L (20-31); CHLORIDE LEVEL 105 MMOL/L (98-107); CK-MB VALUE MASS < 1.0 NG/ML (<3.6); CREATININE FOR GFR 0.96 MG/DL (0.70-1.30); GLOMERULAR FILTRATION RATE > 60.0 (>49); GLUCOSE, FASTING 115 MG/DL (74-106); MB/CK RELATIVE INDEX 1.06 (< OR =4); SODIUM LEVEL 139 MMOL/L (136-145); TOTAL PROTEIN 6.9 G/DL (5.7-8.2)
[2022-11-17 10:00] LABS: FREE T4 1.12 NG/DL (0.89-1.76)
[2022-11-17 10:46] LABS: CK-MB VALUE MASS < 1.0 NG/ML (<3.6)
[2022-11-17 10:51] LABS: CPK CREATINE PHOSPHOKINASE 87 U/L (46-171); MB/CK RELATIVE INDEX 1.14 (< OR =4)
[2022-11-17 12:30] VITALS: BP 122/69
[2022-11-17 13:02] LABS: CK-MB VALUE MASS < 1.0 NG/ML (<3.6)
[2022-11-17 13:03] LABS: CPK CREATINE PHOSPHOKINASE 84 U/L (46-171); MB/CK RELATIVE INDEX 1.19 (< OR =4)
== END 2022-11-17 12:33 | disposition left against medical advice (07) ==
LOC: EDBD 09:05 → M ED 09:49
DX: R07.9 Chest pain, unspecified (principal); R10.9 Unspecified abdominal pain; Z53.9 Procedure and treatment not carried out, unspecified reason; I10 Essential (primary) hypertension; E78.5 Hyperlipidemia, unspecified; J44.9 Chronic obstructive pulmonary disease, unspecified; Z86.73 Personal history of transient ischemic attack (TIA), and cerebral infarction without residual deficits; F17.200 Nicotine dependence, unspecified, uncomplicated; Z82.49 Family history of ischemic heart disease and other diseases of the circulatory system; Z79.899 Other long term (current) drug therapy; Z88.6 Allergy status to analgesic agent

== ENCOUNTER → 2023-02-21 | Outpatient (CLI) | payer OTHER | LOC: M RAD 09:39 | PROVIDERS: ATTEND Nurse Practitioner Adult Health | DX: Z12.2 Encounter for screening for malignant neoplasm of respiratory organs (principal); Z87.891 Personal history of nicotine dependence ==

== ENCOUNTER → 2024-08-01 | Outpatient (CLI) | payer OTHER ==
[2024-08-01 13:07] LABS: HEMATOCRIT 42.3 % (42.0-52.0); MEAN CORPUSCULAR HEMOGLOBIN 30.8 pg (27.0-33.0); MEAN CORPUSCULAR HGB CONC 33.1 g/dl (32.0-36.5); PLATELET COUNT, AUTOMATED 230 10^3/uL (150-450); RED BLOOD COUNT 4.55 10^6/uL (4.30-6.10); WHITE BLOOD COUNT 7.4 10^3/uL (4.0-10.0)
[2024-08-01 13:43] LABS: ALKALINE PHOSPHATASE 68 U/L (46-116); ALT/SGPT 15 U/L (7.0-40); AST/SGOT 10 U/L (<34); BILIRUBIN,TOTAL 0.4 MG/DL (0.3-1.2); BLOOD UREA NITROGEN 11 MG/DL (9-23); CALCIUM LEVEL 9.3 MG/DL (8.3-10.6); CARBON DIOXIDE LEVEL 27 MMOL/L (20-31); CHLORIDE LEVEL 111 MMOL/L (98-107); CHOLESTEROL LEVEL 156 MG/DL (<200); CHOLESTEROL RISK RATIO 4.36 (<5); CREATININE FOR GFR 0.89 MG/DL (0.70-1.30); GLOMERULAR FILTRATION RATE > 60.0 (>49); GLUCOSE, FASTING 78 MG/DL (74-106); HDL CHOLESTEROL 35.7 MG/DL (>40); LDL CHOLESTEROL 104.3 MG/DL (<100); NON-HDL-C 120.3 MG/DL; POTASSIUM SERUM 4.9 MMOL/L (3.5-5.1); PSA SCREENING 2.19 NG/ML (< 4.00); SODIUM LEVEL 140 MMOL/L (136-145); TOTAL PROTEIN 7.2 G/DL (5.7-8.2); TRIGLYCERIDES LEVEL 80 MG/DL (<150)
[2024-08-01 13:47] LABS: THYROID STIMULATING HORMONE 1.233 uIU/ML (0.55-4.78)
== END ==
LOC: M PLALAB 11:32
PROVIDERS: ATTEND Nurse Practitioner Adult Health
DX: Z13.220 Encounter for screening for lipoid disorders (principal); I45.9 Conduction disorder, unspecified; Z12.5 Encounter for screening for malignant neoplasm of prostate; I10 Essential (primary) hypertension

== ENCOUNTER → 2025-03-18 | Outpatient (CLI) | payer OTHER ==
[~2025-03-18] MED LIST changes: +AMLO-751 PO; -AMLO10TA PO; +LIDO1ADH93 TD; -LIDO5DIS41 TD
[2025-03-18 13:21] LABS: BASO # 0.1 10^3/uL (0.0-0.2); BASO % 1.3 % (0.0-1.0); EOS # 0.2 10^3/uL (0.0-0.5); EOS % 3.1 % (0.0-3.0); HEMATOCRIT 41.5 % (42.0-52.0); HEMOGLOBIN 13.9 g/dl (13.5-17.5); LYMPH # 2.1 10^3/uL (1.5-5.0); LYMPH % 30.6 % (24.0-44.0); MEAN CORPUSCULAR HEMOGLOBIN 31.4 pg (27.0-33.0); MEAN CORPUSCULAR HGB CONC 33.5 g/dl (32.0-36.5); MEAN CORPUSCULAR VOLUME 93.9 fl (80.0-96.0); MONO # 0.5 10^3/uL (0.0-0.8); MONO % 7.1 % (2.0-8.0); NEUTROPHILS # 3.9 10^3/uL (1.5-8.5); NEUTROPHILS % 57.6 % (36.0-66.0); PLATELET COUNT, AUTOMATED 201 10^3/uL (150-450); RED BLOOD COUNT 4.42 10^6/uL (4.30-6.10); WHITE BLOOD COUNT 6.8 10^3/uL (4.0-10.0)
[2025-03-18 13:49] LABS: C REACTIVE PROTEIN QUANTITATIV < 0.50 MG/DL (<1.0)
[2025-03-18 13:50] LABS: ALKALINE PHOSPHATASE 54 U/L (40-129); ALT/SGPT 19 U/L (7.0-40); AST/SGOT 16 U/L (<34); BILIRUBIN,TOTAL 0.3 MG/DL (0.3-1.2); BLOOD UREA NITROGEN 12 MG/DL (9-23); CALCIUM LEVEL 9.3 MG/DL (8.3-10.6); CARBON DIOXIDE LEVEL 28 MMOL/L (20-31); CHLORIDE LEVEL 109 MMOL/L (98-107); CREATININE FOR GFR 0.73 MG/DL (0.70-1.30); GLOMERULAR FILTRATION RATE > 90.0 (>49); GLUCOSE, FASTING 79 MG/DL (74-106); POTASSIUM SERUM 4.1 MMOL/L (3.5-5.1); SODIUM LEVEL 142 MMOL/L (136-145); TOTAL PROTEIN 6.9 G/DL (5.7-8.2)
[2025-03-18 14:12] LABS: ERYTHROCYTE SEDIMENTATION RATE 18 mm/hr (0-20)
[2025-03-20 12:42] LABS: QuantiFERON-TB Gold Plus NEGATIVE (NEGATIVE)
== END ==
LOC: M RAD 12:02
PROVIDERS: ATTEND Physician Assistant Medical
DX: R07.89 Other chest pain (principal); R06.02 Shortness of breath; R50.9 Fever, unspecified; R61 Generalized hyperhidrosis

== ENCOUNTER → 2025-05-29 | Outpatient (CLI) | payer OTHER | LOC: M CARPUL 14:17 | PROVIDERS: ATTEND Physician Assistant Medical | DX: J43.9 Emphysema, unspecified (principal); J44.9 Chronic obstructive pulmonary disease, unspecified ==

== ENCOUNTER → 2025-08-09 | Outpatient (CLI) | payer MEDICARE, OTHER ==
[2025-08-09 10:57] LABS: PLATELET COUNT, AUTOMATED 219 10^3/uL (150-450)
[2025-08-09 11:04] LABS: ALT/SGPT 23 U/L (7.0-40); AST/SGOT 21 U/L (<34); CALCIUM LEVEL 9.2 MG/DL (8.3-10.6); CARBON DIOXIDE LEVEL 27 MMOL/L (20-31); CHLORIDE LEVEL 107 MMOL/L (98-107); CHOLESTEROL LEVEL 138 MG/DL (<200); CHOLESTEROL RISK RATIO 3.79 (<5); CREATININE FOR GFR 0.76 MG/DL (0.70-1.30); GLOMERULAR FILTRATION RATE > 90.0 (>49); LDL CHOLESTEROL 89.2 MG/DL (<100); NON-HDL-C 101.6 MG/DL; POTASSIUM SERUM 4.4 MMOL/L (3.5-5.1); PSA SCREENING 2.69 NG/ML (< 4.00); SODIUM LEVEL 141 MMOL/L (136-145); TRIGLYCERIDES LEVEL 62 MG/DL (<150)
[2025-08-09 11:06] LABS: FREE T4 1.24 NG/DL (0.89-1.76)
== END ==
LOC: M PLALAB 08:29
PROVIDERS: ATTEND Nurse Practitioner Adult Health
DX: Z00.00 Encounter for general adult medical examination without abnormal findings (principal); I45.9 Conduction disorder, unspecified; Z12.5 Encounter for screening for malignant neoplasm of prostate; Z13.220 Encounter for screening for lipoid disorders; I10 Essential (primary) hypertension
CPT/HCPCS: 36415; 80053; 80061; 84439; 84443; 85027; G0103